=== PATIENT | male | born 1940 | race Caucasian/White ===

== ENCOUNTER 2020-10-07 11:22 | Outpatient (REF) | payer MEDICARE, SELFPAY ==
[2020-10-07 11:40] VITALS: BP 114/65; PULSE 52; RESP 16; TEMP 36.3; O2SAT 98; BMI 27.3
== END 2020-10-07 11:23 | disposition home or self-care (01) ==
LOC: HO.MS 11:22
PROVIDERS: PCP Internal Medicine; Visit Provider Ophthalmology
PROC: (CPT 66821; principal; 2020-10-07 14:10)
DX: H26.492 Other secondary cataract, left eye (principal); I10 Essential (primary) hypertension; E11.9 Type 2 diabetes mellitus without complications; Z96.1 Presence of intraocular lens; Z79.84 Long term (current) use of oral hypoglycemic drugs; Z79.899 Other long term (current) drug therapy; Z88.8 Allergy status to other drugs, medicaments and biological substances; Z83.518 Family history of other specified eye disorder; Z87.891 Personal history of nicotine dependence
CPT/HCPCS: 66821